=== PATIENT | female | born 1960 | race Caucasian/White ===

== ENCOUNTER 2021-02-20 09:15 | Outpatient (RCR) | payer OTHER, SELFPAY ==
[2021-01-23 11:03] VITALS: BMI 35.2
[2021-01-23 11:15] VITALS: BMI 35.2
== END 2021-04-14 11:58 | disposition home or self-care (01) ==
LOC: ANHDMC 09:15
PROVIDERS: PCP Physician Assistant; Visit Provider Physician Assistant
DX: E11.65 Type 2 diabetes mellitus with hyperglycemia (principal); Z71.3 Dietary counseling and surveillance; Z71.89 Other specified counseling
CPT/HCPCS: 97802; G0108

== ENCOUNTER 2022-11-04 08:32 | Outpatient (CLI) | payer OTHER, SELFPAY ==
--- NOTE | ~2022-11-04 | US_ITS ---
US abdomen complete EXAMINATION: US Abdomen Complete INDICATION: Epigastric pain PROCEDURE: Realtime High Resolution abdomen ultrasound. COMPARISON: No prior studies for comparison FINDINGS: Gallbladder within normal limits. No gallstones, pericholecystic fluid, gallbladder wall t hickening or biliary dilatation. Common bile duct measures 3 mm. Liver echotexture is increased, consistent with fatty infiltration.. Pancreas within normal limits. Pancreatic tail is obscured by bowel gas. Spleen is unremarkeable. Renal echotexture is within norm al limits bilaterally without hydronephrosis, contour deforming mass or renal stone. Right kidney luis sures 10.5 cm. Left kidney measures 11 cm. Visualized aspects of the aorta and IVC are within normal limits. Portal vein is patent. No sonograph ic Hill's sign indicated by the technologist. IMPRESSION: 1: Fatty infiltration of the liver. Reviewed, dictated and finalized at location B. [facility]
== END 2022-11-04 08:33 | disposition home or self-care (01) ==
LOC: ANHIMG 08:34
PROVIDERS: PCP Family Medicine; Visit Provider Nurse Practitioner
DX: R10.13 Epigastric pain (principal); R10.33 Periumbilical pain; K76.0 Fatty (change of) liver, not elsewhere classified
CPT/HCPCS: 76700

== ENCOUNTER 2022-11-25 00:30 | Day surgery (SDC) | payer OTHER, SELFPAY ==
[2022-11-12 13:05] VITALS: BMI 33.5
[2022-11-25 11:54] VITALS: BP 135/75; PULSE 84; RESP 16; TEMP 36.2; O2SAT 100; BMI 33.0
[2022-11-25] MEDS: LACTATED RINGERS 1,000 ML 150 ML IV CONT (12:06)
[2022-11-25 12:16] LABS: Glucose Point of Care 97 mg/dl (65-105)
--- NOTE | 2022-11-25 12:17 | WPDANESEPPF ---
Anes - Initial Pre Proc Eval Procedure: Operation Date: 11/25/22 13:00 Proposed Procedures p Esophagogastroduodenoscopy & Screening Colonoscopy - Francisco Magana MD Date/Time: 11/25/22 12:17 Surgeon: Francisco Magana MD Pre Op Diagnosis: GERD, Epigastric Pain, Neoplasm Screening Patient Data Age: 62 Gender: F Height: 1.63 m Weight: 87.5 kg Last Vital Signs Temp 97.2 F L 11/25/22 11:54 Pulse 84 11/25/22 11:54 Resp 16 11/25/22 11:54 BP 135/75 11/25/22 11:54 Pulse Ox 100 11/25/22 11:54 O2 Del Method Room Air 11/25/22 11:54 Allergies Allergy/AdvReac Type Severity Reaction Status Date / Time No Known Allergies Allergy Verified 11/25/22 11:52 Home Medications Medication Instructions Recorded Confirmed Type blood sugar diagnostic (OneTouch #100 ea 12/16/20 11/25/22 Rx Verio test strips) blood-glucose meter (OneTouch #1 ea 12/16/20 11/25/22 Rx Verio Meter) lancets #100 ea 12/16/20 11/25/22 Rx atorvastatin 20 mg tablet See Rx Instructions .Route 10/13/22 11/25/22 Rx .COMPLEX #90 tabs lisinopril 10 mg tablet 10 mg PO DAILY #30 tabs 10/13/22 11/25/22 Rx metoprolol succinate 50 mg 50 mg PO DAILY #30 tabs 10/13/22 11/25/22 Rx tablet,extended release 24 hr pantoprazole 40 mg tablet,delayed 40 mg PO DAILY #90 tabs 10/13/22 11/25/22 Rx release semaglutide 0.25 mg or 0.5 mg (2 See Rx Instructions .Route 10/13/22 11/25/22 Rx mg/1.5 mL) subcutaneous pen .COMPLEX #1.5 mL injector (Ozempic) Laboratory Tests 11/25/22 12:00 POC Capillary Glucose 97 mg/dl mg/dl (65-105) Patient hx anesthesia problems: none Family hx anesthesia problems: none Results Review: All pre-operative results and documents have been reviewed as part of the pre-operative evaluation. [facility] Past Medical History Medical History (Updated 11/04/22 @ 11:22 by Elif Briggs APRN) Ablatio placentae Benign hypertension Epigastric abdominal pain Epigastric abdominal pain Epistaxis Hepatic steatosis History of COVID-19 Hyperlipidemia LDL goal <100 Obesity (BMI 30.0-34.9) Otitis media Periumbilical pain Plantar fasciitis of right foot (~2019) Pre-op examination (~01/02/19) Sinus congestion Sinus tachycardia Vertigo Surgical History Surgical History (Reviewed 10/22/22 @ 10:21 by Ale Whitney [facility]) Delivery by section XS 2 History of endometrial ablation History of foot surgery right foot Family History Family History Father Hypertension Family history of lung cancer Grandparent Family history of malignant neoplasm of breast in first degree relative Mother Family history of malignant neoplasm of breast in first degree relative Social History Social History (Reviewed 10/22/22 @ 10:21 by Ale Whitney [facility]) Smoking status: Never smoker Second hand tobacco smoke exposure: No Alcohol intake: current Drinks per week: 1 Alcohol use details: consumes 2 hard liquor drinks occasionally Substance use: never Substance use type: does not use Lack of Transportation: No Lack of Food: Never True Current Housing: I Have Housing Concerned About Future Housing: No Difficulty Paying Gas/Electric Bills: No Difficulty Paying for Meds: No Currently Unemployed: No Education: Bachelor's Degree Difficulty w/ Childcare or Family Care: No Living arrangements: with family Occupation/Education: retired Gender identity (if verbalized by the patient): Female Sexual Orientation (if Verbalized by the Patient): Straight or Heterosexual Spiritual care concerns: No Agree to blood products: Yes Anes - Eval Final PreProcedure Day of Procedure 11/25/22 12:17 Patient weight: obese Heart: regular rate and rhythm Lungs: clear to auscultation Airway: Mallampati scale class II Neurological: alert and oriented Last oral intake: >/= 8 h
--- NOTE | 2022-11-25 12:55 | PM.HPGS ---
History of Present Illness History of Present Illness Consent: Risks, benefits, and alternatives have been discussed and questions answered. Patient agrees to proceed with procedure. Chief complaint: GERD, Epigastric Pain, Neoplasm Screening Narrative: Denisse Naidu is a 62 year old female with chronic epigastric pain using protonix, never had colonoscopy Review of Systems Constitutional: Constitutional: Denies headache(s) and Denies weakness Eyes: Eyes: Denies blurry vision ENT: Reports Normal hearing present, Denies headache(s) and Denies neck pain Cardiovascular: Cardiovascular: Denies chest pain and Denies dyspnea Respiratory: Respiratory: Denies dyspnea Gastrointestinal: Gastrointestinal: Reports no additional gastrointestinal complaints Genitourinary: Genitourinary: Denies dysuria Musculoskeletal: Musculoskeletal: Denies neck pain Integumentary/Breasts: Skin/Breast: Denies dry skin Neurologic: Reports Normal hearing present, Denies headache(s) and Denies weakness Psychiatric: Psychiatric: Denies anxiety Endocrine: Endocrine: Denies change in body appearance Hematologic/Lymphatic: Hematologic/Lymphatic: Denies easy bleeding Allergic/Immunologic: Allergic/Immunologic: Denies urticaria [facility] Past Medical History Medical History (Updated 11/04/22 @ 11:22 by Elif Briggs, VICE PRESIDENT OF FINANCE) Ablatio placentae Benign hypertension Epigastric abdominal pain Epigastric abdominal pain Epistaxis Hepatic steatosis History of COVID-19 Hyperlipidemia LDL goal <100 Obesity (BMI 30.0-34.9) Otitis media Periumbilical pain Plantar fasciitis of right foot (~2019) Pre-op examination (~01/02/19) Sinus congestion Sinus tachycardia Vertigo Surgical History Surgical History Delivery by section XS 2 History of endometrial ablation History of foot surgery right foot Family History Family History Father Hypertension Family history of lung cancer Grandparent Family history of malignant neoplasm of breast in first degree relative Mother Family history of malignant neoplasm of breast in first degree relative Social History Social History Smoking status: Never smoker Second hand tobacco smoke exposure: No Alcohol intake: current Drinks per week: 1 Alcohol use details: consumes 2 hard liquor drinks occasionally Substance use: never Substance use type: does not use Lack of Transportation: No Lack of Food: Never True Current Housing: I Have Housing Concerned About Future Housing: No Difficulty Paying Gas/Electric Bills: No Difficulty Paying for Meds: No Currently Unemployed: No Education: Bachelor's Degree Difficulty w/ Childcare or Family Care: No Living arrangements: with family Occupation/Education: retired Gender identity (if verbalized by the patient): Female Sexual Orientation (if Verbalized by the Patient): Straight or Heterosexual Spiritual care concerns: No Agree to blood products: Yes Meds Home Medications and Allergies Home Medications Medication Instructions Recorded Confirmed Type blood sugar diagnostic (OneTouch #100 ea 12/16/20 11/25/22 Rx Verio test strips) blood-glucose meter (OneTouch #1 ea 12/16/20 11/25/22 Rx Verio Meter) lancets #100 ea 12/16/20 11/25/22 Rx atorvastatin 20 mg tablet See Rx Instructions .Route 10/13/22 11/25/22 Rx .COMPLEX #90 tabs lisinopril 10 mg tablet 10 mg PO DAILY #30 tabs 10/13/22 11/25/22 Rx metoprolol succinate 50 mg 50 mg PO DAILY #30 tabs 10/13/22 11/25/22 Rx tablet,extended release 24 hr pantoprazole 40 mg tablet,delayed 40 mg PO DAILY #90 tabs 10/13/22 11/25/22 Rx release semaglutide 0.25 mg or 0.5 mg (2 See Rx Instructions .Route 10/13/22 11/25/22 Rx mg/1.5 mL) subcutaneous pen .COMPLEX #1.5 mL inje
--- NOTE | 2022-11-25 13:07 | SUR.OPER ---
EGD start 1258 end 1302, Colon start 1307 end 1319
[2022-11-25 13:24] VITALS: BP 93/57; PULSE 83; RESP 24; O2SAT 97
[2022-11-25 13:34] VITALS: BP 114/63; PULSE 77; RESP 22; O2SAT 97
[2022-11-25 13:44] VITALS: BP 113/71; PULSE 71; RESP 20; O2SAT 100
== END 2022-11-25 13:52 | disposition home or self-care (01) ==
PROVIDERS: PCP Family Medicine; Visit Provider Internal Medicine Gastroenterology
PROC: 0DJ08ZZ Inspection of Upper Intestinal Tract, Via Natural or Artificial Opening Endoscopic (ICD-10-PCS; CPT 43235; principal; 2022-11-25 13:00)
DX: Z12.11 Encounter for screening for malignant neoplasm of colon (principal); K63.5 Polyp of colon; K64.8 Other hemorrhoids; K21.9 Gastro-esophageal reflux disease without esophagitis; E78.5 Hyperlipidemia, unspecified; I10 Essential (primary) hypertension; K76.0 Fatty (change of) liver, not elsewhere classified; Z79.899 Other long term (current) drug therapy; E66.9 Obesity, unspecified; Z68.33 Body mass index [BMI] 33.0-33.9, adult
CPT/HCPCS: 45385; 43239; 82948; 88305; J2704; J7120

== ENCOUNTER 2023-04-28 13:35 | Outpatient (CLI) | payer OTHER, SELFPAY ==
[2023-04-28 15:11] LABS: Alanine Aminotransferase 36 U/L (6-35); Albumin Level 4.6 g/dL (3.5-5.1); Alkaline Phosphatase 84 U/L (38-126); Aspartate Amino Transferase 32 U/L (14-36); Bilirubin,Total 0.6 mg/dL (0.2-1.3)
== END 2023-04-28 13:36 | disposition home or self-care (01) ==
LOC: ANHLAB 13:35
PROVIDERS: PCP Family Medicine; Visit Provider Nurse Practitioner
DX: K76.0 Fatty (change of) liver, not elsewhere classified (principal)
CPT/HCPCS: 36415; 80076

== ENCOUNTER 2024-05-02 09:19 | Outpatient (CLI) | payer OTHER, SELFPAY ==
[2024-05-02 09:56] LABS: Hematocrit 43.4 % (37.0-47.0); Hemoglobin 13.8 g/dL (12.0-15.0); Mean Corpuscular HGB Conc 31.8 g/dl (32-36); Mean Corpuscular Hemoglobin 28.4 pg (26-34); Mean Corpuscular Volume 89.3 fl (80-100); Mean Platelet Volume 9.5 fl (7.4-10.4); Platelet Count Result 321 k/mm3 (150-375); Red Blood Count 4.86 M/mm3 (4.2-5.4); Red Cell Distribution Width 13.1 % (11.5-14.5); White Blood Count 7.8 K/mm3 (4.5-10.0)
[2024-05-02 10:11] LABS: INR 0.9; Prothrombin Time 12.8 Seconds (11.1-14.7)
[2024-05-02 10:12] LABS: Alanine Aminotransferase 28 U/L (6-35); Albumin Level 4.5 g/dL (3.5-5.1); Alkaline Phosphatase 88 U/L (38-126); Anion Gap 11 mmol/L (4-12); Aspartate Amino Transferase 25 U/L (14-36); Bilirubin,Total 0.7 mg/dL (0.2-1.3); Blood Urea Nitrogen 17 mg/dL (7-17); Carbon Dioxide 27 mmol/L (22-30); Chloride 99 mmol/L (98-107); Estimated Glomerular Filt Rate > 60; Glucose 103 mg/dL (65-110); Potassium 4.5 mmol/L (3.4-5.0); Sodium 137 mmol/L (137-145)
== END 2024-05-02 09:20 | disposition home or self-care (01) ==
LOC: ANHLAB 09:22
PROVIDERS: PCP Family Medicine; Visit Provider Nurse Practitioner
DX: K76.0 Fatty (change of) liver, not elsewhere classified (principal)
CPT/HCPCS: 36415; 80053; 85027; 85610